=== PATIENT | female | born 1995 ===

== ENCOUNTER 2021-04-07 15:52 | Inpatient (IN) | payer MEDICAID ==
[2021-04-07] MEDS ORDERED: Sodium Chloride 0.9% 2.5 ML Syringe FLUSH PRN (16:04)
[2021-04-07] MEDS ORDERED: Sodium Chloride 0.9% 10 ML Syringe FLUSH PRN (16:04)
[2021-04-07] MEDS ORDERED: Ondansetron 4 MG/2 ML SDV IVPUSH PRN (16:04)
[2021-04-07] MEDS ORDERED: Sodium Chloride 0.9% 10 ML SDV IV PRN (16:04)
[2021-04-07] MEDS ORDERED: Misoprostol 50 MCG (1/2 of 100 MCG) Tab VAG ONE (16:11)
[2021-04-07] MEDS ORDERED: Acetaminophen 500 MG Tab PO PRN (16:33)
[2021-04-07 17:54] LABS: HEMOGLOBIN A1C 6.1 %
[2021-04-07] MEDS ORDERED: cefTRIAXone 1 GM in Sodium Chloride 0.9% 50 ML IV ONE (19:36)
--- NOTE | 2021-04-07 19:38 | PCM.SN.2 ---
- Free Text/Narrative Note: US images reviewed, fetus measures 25w1d by biometry. Cephalic presentation. Anterior placenta without previa. Oligohydramnios noted. Placenta appears normal. Reviewed positive Hepatitis C antibody with patient, she states she has had Hepatitis C since her last , has not received treatment. Mild maternal anemia and thrombocytosis. Rh positive. Positive nitrites on UA, will treat for UTI with 1g IV Rocephin. UDS pending. Pre-diabetes with A1c 6.1% Loading dose of 800mcg misoprostol to be given for induction of labor.
[2021-04-07] MEDS: Lactated Ringers 1,000 ML IV SCH (19:54)
--- NOTE | 2021-04-07 20:03 | US ---
INDICATION: Confirm demise. TECHNIQUE: Transabdominal obstetric pelvic ultrasound. COMPARISON: None available. Single intrauterine in cephalic presentation. No cardiac activity identified on cine or color Doppler imaging. Placenta is located anteriorly without evidence of previa. Amniotic fluid maximal vertical pocket measures 2.6 cm. IMPRESSION: Absent cardiac activity compatible with demise. Dictated by Pravin Miller MD @ 04/07/2021 8:02:04 PM Dictated by: Pravin Millre MD @ 04/07/2021 20:02:10 (Electronically Signed)
[2021-04-07] MEDS: Misoprostol 50 MCG (1/2 of 100 MCG) Tab VAG SCH (22:50)
[2021-04-07] MEDS: fentaNYL 100 MCG/2 ML SDV IVPUSH PRN (23:05)
[2021-04-07] MEDS ORDERED: Butorphanol 1 MG/ML SDV ONE ×2 (23:55→23:56)
[2021-04-08] MEDS: Butorphanol 2 MG/ML SDV IVPUSH PRN ×2 (00:07→03:27)
[2021-04-08] MEDS: Misoprostol 50 MCG (1/2 of 100 MCG) Tab VAG SCH ×2 (01:41→04:58)
[2021-04-08] MEDS: fentaNYL 100 MCG/2 ML SDV IVPUSH PRN (01:52)
[2021-04-08] MEDS: Lactated Ringers 1,000 ML IV SCH (02:18)
[2021-04-08] MEDS ORDERED: Butorphanol 1 MG/ML SDV ONE ×4 (03:21→08:03)
--- NOTE | 2021-04-08 04:46 | HP ---
DATE OF : 1995 PRIMARY CARE PHYSICIAN: None PCP CHIEF COMPLAINT: demise. HISTORY OF PRESENT ILLNESS: This is a 25-year-old G2, P1 who presented as a transfer from [place] due to a demise at roughly 22 to 23 weeks gestation. The patient states that she had initiated care 1 week ago. She passed 2 large blood clots this morning and reported as not having felt the baby move for 24 hours. She presented to the [place] [facility] and was found to have a demise via bedside ultrasound. She has had minimal cramping. She stopped bleeding, and her cervix was closed. She denies abdominal trauma. She denies recent drug use. However, the business analyst in [place] said that the patient admitted to methamphetamine use. PAST MEDICAL HISTORY: Hepatitis C Denies asthma or hypertension. PAST SURGICAL HISTORY: delivery x1. PAST OBSTETRIC HISTORY: Primary low transverse section in 2018 at 37 weeks for malpresentation. PAST GYNECOLOGIC HISTORY: The patient states that she has a history of STI, however, unsure which one. FAMILY HISTORY: Noncontributory. SOCIAL HISTORY: Reports marijuana use but denies any other drug use, alcohol use, or tobacco use. MEDICATIONS: vitamin. ALLERGIES: No known drug allergies. PHYSICAL EXAMINATION: VITAL SIGNS: Blood pressure 117/72, heart rate 92, respiratory rate 18, and temperature 97.8. GENERAL: No apparent distress. CARDIOVASCULAR: Regular rate and rhythm. LUNGS: Clear to auscultation bilaterally. ABDOMEN: Soft, nontender, and nondistended. Gravid. EXTREMITIES: No edema. Nontender. PELVIC: Deferred at this time. OUTSIDE LABORATORY DATA: O-positive, hemoglobin 10.2, and platelets 707. Creatinine 0.5. ASSESSMENT AND PLAN: This is a 25-year-old G2, P1 at roughly 22 to 23 weeks gestation by outside report with a demise. She will be admitted to Labor and Delivery. labs and demise labs will be obtained. A formal abdominal ultrasound will be obtained to confirm demise, placenta location, and lie. Once demise is confirmed, she will be started on misoprostol for induction of labor. She understands that she has an increased risk of bleeding and may require surgery to remove the placenta as the placenta delivered spontaneously. [id number] / MODL /[id number] VU
[2021-04-08] MEDS ORDERED: fentaNYL 50 MCG/ML SDV IVPUSH PRN (05:21)
[2021-04-08] MEDS ORDERED: Butorphanol 2 MG/ML SDV IVPUSH PRN (05:46)
[2021-04-08] MEDS: Butorphanol 1 MG/ML SDV ONE ×2 (05:56→07:57)
[2021-04-08] MEDS ORDERED: Misoprostol 200 MCG Tab ONE (07:54)
[2021-04-08] MEDS ORDERED: Butorphanol 1 MG/ML SDV IVPUSH PRN (07:56)
[2021-04-08] MEDS ORDERED: Misoprostol 200 MCG Tab VAG SCH (08:00)
[2021-04-08] MEDS ORDERED: Oxytocin/0.9 % Sodium Chloride 30 UNIT/500 ML BAG ONE (09:05)
[2021-04-08] MEDS ORDERED: Acetaminophen 500 MG Tab PO PRN ×2 (09:55)
[2021-04-08] MEDS ORDERED: Bisacodyl 10 MG Supp RECTAL PRN (09:55)
[2021-04-08] MEDS ORDERED: Docusate Sodium 100 MG Cap PO PRN (09:55)
[2021-04-08] MEDS ORDERED: Benzocaine/Menthol 20%-0.5% Spray 78 GM Cannister TOP PRN (09:55)
[2021-04-08] MEDS ORDERED: Witch Hazel Medicated Pads 40/Jar TOP PRN (09:55)
[2021-04-08] MEDS ORDERED: oxyCODONE 5 MG Tab PO PRN (09:55)
[2021-04-08] MEDS ORDERED: Ibuprofen 800 MG Tab PO PRN (09:55)
[2021-04-08] MEDS ORDERED: Lanolin 100% Cream 7 GM Tube TOP PRN (09:55)
[2021-04-08] MEDS ORDERED: Ibuprofen 400 MG Tab PO PRN (09:55)
--- NOTE | 2021-04-08 23:43 | OR ---
SURGEON: Eliezer Monte MD DATE OF PROCEDURE: 04/08/2021 INDICATION FOR PROCEDURE: This is a 25-year-old G2, P 1-0-0-1 at 25 weeks and 1-day by ultrasound dating, admitted for induction of labor due to demise. She presented to [facility] stating that she did not feel movement for the past 24 hours and was found to have a demise, therefore she was transferred to [facility] in [place] for management. She initiated her care last week there, is unsure of LMP. Upon admission, labs were obtained. She was found to have positive methamphetamines on her urine toxicology, and hepatitis C. She reports had positive hepatitis C in her last and was never treated. She has a history of one prior due to malpresentation. The baby was found on ultrasound to be 25 weeks and 1 day by biometry with no cardiac activity. There was oligohydramnios with an HERNAN of 2.5. Induction of labor was started with Cytotec. She received five doses of Cytotec and began to make cervical change. She progressed from closed to 3 cm dilated. AROM was performed with very minimal amniotic fluid. She began to progress quickly after that and delivered within the next 30 minutes. PREOPERATIVE DIAGNOSES: 1. demise at 25 weeks and one day. 2. No care. 3. Hepatitis C positive. 4. Methamphetamine use. 5. History of prior section x1. POSTOPERATIVE DIAGNOSES: 1. demise at 25 weeks and one day. 2. No care. 3. Hepatitis C positive. 4. Methamphetamine use. 5. History of prior section x1. PROCEDURE PERFORMED: Normal spontaneous vaginal delivery. ANESTHESIA: None. FINDINGS: male without cardiac activity. The fetus was hydropic. The placenta was removed intact. ESTIMATED BLOOD LOSS: 300 mL. DESCRIPTION OF PROCEDURE: The patient felt increasing pressure and delivered the head spontaneously with 1 push, and the body quickly followed after. The umbilical cord was clamped and cut. The baby was noted to be very edematous and with no cardiac activity. Appeared to be male and have normal appearing features. The placenta was removed with gentle traction on the umbilical cord and fundal massage. It was examined and found to be intact. A bimanual massage was performed, she had a few blood clots, but the tone improved and had minimal bleeding after. The baby was wrapped up and handed to mom by her request. She declined autopsy and cytogenetics, and desired the baby to be sent to home. The patient tolerated the procedure well. I reviewed care instructions. JEANIE THOMAS /[id number] MTDD
[2021-04-09 11:07] LABS: C.TRACHOMATIS BY TMA Negative (Negative); N.GONORRHOEAE BY TMA Positive (Negative)
== END 2021-04-08 16:13 | disposition home or self-care (01) | DRG 806 ==
LOC: MW.OBCHECK 15:52 → MW.CHOBGYN 15:52 → MW.OB 16:04 → MW.OBCHECK 16:04 → MW.OB 16:08
PROVIDERS: ADMIT Obstetrics & Gynecology; ATTEND Obstetrics & Gynecology
PROC: 10E0XZZ Delivery of Products of Conception, External Approach (ICD-10-PCS; principal; 2021-04-07)
PROC: 10907ZC Drainage of Amniotic Fluid, Therapeutic from Products of Conception, Via Natural or Artificial Opening (ICD-10-PCS; 2021-04-07)
PROC: 3E0P7VZ Introduction of Hormone into Female Reproductive, Via Natural or Artificial Opening (ICD-10-PCS; 2021-04-07)
DX: O36.4XX0 Maternal care for intrauterine death, not applicable or unspecified (principal); O99.324 Drug use complicating childbirth; Z37.1 Single stillbirth; O98.42 Viral hepatitis complicating childbirth; Z3A.25 25 weeks gestation of pregnancy; F15.90 Other stimulant use, unspecified, uncomplicated; B19.20 Unspecified viral hepatitis C without hepatic coma; Z20.822 Contact with and (suspected) exposure to COVID-19
CPT/HCPCS: 76815; 76815-26; 80305-QW; 81001; 83036; 85027; 85610; 85613; 85730; 86146; 86147; 86592; 86762; 86803; 86850; 86900; 86901; 87086; 87340; 87491; 87522; 87591; A9270-GY; J0595; J0696; J2590; J3010; J7120; U0002